=== PATIENT | female | born 2000 | race Hispanic/Latino ===

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

== ENCOUNTER 2023-08-14 06:42 | Inpatient (IN) | payer MEDICAID, OTHER ==
[~2023-08-14] VITALS: Ht 157.5 cm; Wt 68.9 kg
[2023-08-14 07:16] LABS: APPEARANCE,URINE CLOUDY (CLEAR); BILIRUBIN,URINE NEGATIVE (NEGATIVE); COLOR,URINE YELLOW (YELLOW); GLUCOSE, URINE (UA) NEGATIVE (NEGATIVE); KETONES,URINE 10 mg/dL (NEGATIVE); LEUKOCYTE ESTERASE ,URINE NEGATIVE Leu/uL (NEGATIVE); NITRATE,URINE NEGATIVE (NEGATIVE); OCCULT BLOOD,URINE SMALL (NEGATIVE); PROTEIN,URINE 10 mg/dL (NEGATIVE); UROBILINOGEN,URINE 0.2 mg/dL (0.2-1.0)
[2023-08-14 07:26] LABS: ADD UA MICROSCOPIC YES
[2023-08-14 07:29] LABS: BACTERIA,URINE FEW /HPF (None Seen); MUCUS,URINE RARE LPF (None Seen); OTHER CASTS, URINE 1 /LPF (None Seen); SQUAMOUS EPITHELIAL CELL,UR MOD /HPF (0-2)
[2023-08-14 08:09] LABS: BASOPHILS # (AUTO) 0.04 K/uL (0.00-0.20); BASOPHILS % (AUTO) 0.5 % (0.0-5.0); EOSINOPHILS # (AUTO) 0.17 K/uL (0.00-0.70); EOSINOPHILS % (AUTO) 2.1 % (0.0-8.0); HEMATOCRIT 34.7 % (36-48); IMMATURE GRANULOCYTE ABSOLUTE 0.02 K/uL (0-1); LYMPHOCYTES # (AUTO) 1.8 K/uL (1.0-4.8); LYMPHOCYTES % (AUTO) 21.3 % (21.0-51.0); MEAN CORPUSCULAR HEMOGLOBIN 24.8 pg (27.0-33.0); MEAN CORPUSCULAR VOLUME 77.5 fL (80-100); MONOCYTES # (AUTO) 0.7 K/uL (0.1-1.0); MONOCYTES % (AUTO) 8.2 % (3.0-13.0); NEUTROPHILS # (AUTO) 5.6 K/uL (1.8-7.7); NEUTROPHILS % (AUTO) 67.7 % (40.0-77.0); PLATELET COUNT (AUTO) 327 K/uL (130-400); RED BLOOD CELL COUNT(AUTO) 4.48 MIL/uL (4.00-5.50); RED CELL DISTRIBUTION WIDTH 14.7 % (11.0-15.5); WHITE BLOOD COUNT (AUTO) 8.3 K/uL (4.8-10.8)
[2023-08-14] MEDS: HYOSCYAMINE SULFATE 0.125 MG TAB.SUBL SL ONE (08:15)
[2023-08-14] MEDS: ONDANSETRON 4MG INJ IVP ONE (08:15)
[2023-08-14] MEDS: PANTOPRAZOLE 40 MG/VIAL IVP ONE (08:15)
[2023-08-14] MEDS: 0.9%NACL 1000ML 1,000 ML IV ONE (08:15)
[2023-08-14 08:35] LABS: ALBUMIN 3.9 g/dL (3.5-5.0); BILIRUBIN,TOTAL 1.1 mg/dL (0.2-1.0); CREATININE 0.7 mg/dL (0.5-1.0); POTASSIUM 3.6 mmol/L (3.5-5.1); TOTAL PROTEIN, SERUM 8.1 g/dL (6.0-8.3)
[2023-08-14 13:07] LABS: ALBUMIN 3.5 g/dL (3.5-5.0); BILIRUBIN,DIRECT 0.4 mg/dL (0.0-0.3); BILIRUBIN,TOTAL 0.9 mg/dL (0.2-1.0); TOTAL PROTEIN, SERUM 7.3 g/dL (6.0-8.3)
[2023-08-14] MEDS: 0.9%NACL 1000ML 1,000 ML IV SCH (15:30)
[2023-08-14] MEDS ORDERED: ACETAMINOPHEN 500 MG TABLET PO PRN (15:30)
[2023-08-14] MEDS ORDERED: KETOROLAC 15MG/ML VIAL (15MG/ML) IV PRN (15:30)
[2023-08-14 15:36] LABS: AMPHET/METH SCREEN,URINE NEGATIVE (NEGATIVE); BARBITURATE SCREEN, URINE NEGATIVE (NEGATIVE); BENZODIAZEPINES SCREEN,URINE NEGATIVE (NEGATIVE); CANNABINOID SCREEN,URINE NEGATIVE (NEGATIVE); COCAINE SCREEN,URINE NEGATIVE (NEGATIVE); OPIATE SCREEN,URINE NEGATIVE (NEGATIVE); PHENCYCLIDINE SCREEN,URINE NEGATIVE (NEGATIVE)
[2023-08-14 15:39] LABS: INR 0.94 (0.85-1.15); PROTHROMBIN TIME 11.1 SEC (9.6-11.6)
[2023-08-14 15:40] LABS: PARTIAL THROMBOPLASTIN TIME 29.9 SEC (26.3-35.5)
[2023-08-14] MEDS: CEFTRIAXONE 1G VIAL IVPB SCH (15:59)
[2023-08-14] MEDS: METRONIDAZOLE 500MG/100ML BAG 100 ML IVPB SCH (15:59)
[2023-08-14 16:18] LABS: SARS-CoV-2, RNA, NAAT NEGATIVE SARS CoV-2 (NEGATIVE)
[2023-08-14 16:23] LABS: INFLUENZA TYPE A Negative For Type A (NEGATIVE); INFLUENZA TYPE B Negative For Type B (NEGATIVE)
[2023-08-14 17:47] VITALS: BP 109/67; PULSE 62; RESP 17
[2023-08-14 20:00] VITALS: O2SAT 98
[2023-08-14 20:03] VITALS: BP 108/50; PULSE 64; RESP 18
[2023-08-14 23:38] VITALS: BP 111/58; PULSE 6; RESP 18
[2023-08-15 03:48] VITALS: BP 98/45; PULSE 62; RESP 18
[2023-08-15 05:04] LABS: BASOPHILS # (AUTO) 0.05 K/uL (0.00-0.20); BASOPHILS % (AUTO) 0.7 % (0.0-5.0); EOSINOPHILS % (AUTO) 4.2 % (0.0-8.0); HEMATOCRIT 29.3 % (36-48); IMMATURE GRANULOCYTE ABSOLUTE 0.03 K/uL (0-1); LYMPHOCYTES # (AUTO) 2.6 K/uL (1.0-4.8); LYMPHOCYTES % (AUTO) 35.8 % (21.0-51.0); MEAN CORPUSCULAR HEMOGLOBIN 24.9 pg (27.0-33.0); MEAN CORPUSCULAR HGB CONC 31.7 g/dL (32.0-36.0); MEAN CORPUSCULAR VOLUME 78.6 fL (80-100); MONOCYTES # (AUTO) 0.7 K/uL (0.1-1.0); NEUTROPHILS # (AUTO) 3.5 K/uL (1.8-7.7); NEUTROPHILS % (AUTO) 48.9 % (40.0-77.0); PLATELET COUNT (AUTO) 266 K/uL (130-400); RED BLOOD CELL COUNT(AUTO) 3.73 MIL/uL (4.00-5.50); RED CELL DISTRIBUTION WIDTH 14.8 % (11.0-15.5); WHITE BLOOD COUNT (AUTO) 7.2 K/uL (4.8-10.8)
[2023-08-15 05:21] LABS: ALBUMIN 3.1 g/dL (3.5-5.0); BILIRUBIN,TOTAL 0.4 mg/dL (0.2-1.0); CREATININE 0.7 mg/dL (0.5-1.0); MAGNESIUM 1.8 mg/dL (1.80-2.40); TOTAL PROTEIN, SERUM 6.6 g/dL (6.0-8.3)
[2023-08-15 07:47] VITALS: O2SAT 98
[2023-08-15 08:00] VITALS: BP 95/52; PULSE 66; RESP 18
[2023-08-15] MEDS: PANTOPRAZOLE 40 MG/VIAL IVP SCH (09:01)
[2023-08-15] MEDS: ONDANSETRON 4MG INJ IVP PRN (09:36)
[2023-08-15 11:22] VITALS: BP 109/57; PULSE 62; RESP 18
[2023-08-15 16:00] VITALS: BP 100/57; PULSE 66; RESP 17
[2023-08-15 20:00] VITALS: BP 105/71; PULSE 59; RESP 16
[2023-08-16] VITALS (31 sets, daily range): BP systolic 86–119; BP diastolic 48–76; PULSE 62–98; RESP 13–18; O2SAT 99–100
[2023-08-16 03:42] LABS: BASOPHILS # (AUTO) 0.04 K/uL (0.00-0.20); BASOPHILS % (AUTO) 0.5 % (0.0-5.0); EOSINOPHILS # (AUTO) 0.28 K/uL (0.00-0.70); EOSINOPHILS % (AUTO) 3.4 % (0.0-8.0); HEMATOCRIT 29.4 % (36-48); IMMATURE GRANULOCYTE ABSOLUTE 0.02 K/uL (0-1); LYMPHOCYTES # (AUTO) 2.9 K/uL (1.0-4.8); LYMPHOCYTES % (AUTO) 35.3 % (21.0-51.0); MEAN CORPUSCULAR HEMOGLOBIN 25.3 pg (27.0-33.0); MEAN CORPUSCULAR HGB CONC 32.3 g/dL (32.0-36.0); MEAN CORPUSCULAR VOLUME 78.2 fL (80-100); MONOCYTES # (AUTO) 0.8 K/uL (0.1-1.0); MONOCYTES % (AUTO) 9.1 % (3.0-13.0); NEUTROPHILS # (AUTO) 4.2 K/uL (1.8-7.7); NEUTROPHILS % (AUTO) 51.5 % (40.0-77.0); PLATELET COUNT (AUTO) 288 K/uL (130-400); RED BLOOD CELL COUNT(AUTO) 3.76 MIL/uL (4.00-5.50); RED CELL DISTRIBUTION WIDTH 14.9 % (11.0-15.5); WHITE BLOOD COUNT (AUTO) 8.2 K/uL (4.8-10.8)
[2023-08-16 04:16] LABS: ALBUMIN 3.2 g/dL (3.5-5.0); BILIRUBIN,TOTAL 0.4 mg/dL (0.2-1.0); CREATININE 0.7 mg/dL (0.5-1.0); POTASSIUM 3.7 mmol/L (3.5-5.1); TOTAL PROTEIN, SERUM 6.6 g/dL (6.0-8.3)
[2023-08-16] MEDS ORDERED: FENTANYL CITRATE PF 50 MCG/1 ML 2ML VIAL ONE (13:56)
[2023-08-16] MEDS ORDERED: PROPOFOL 10 MG/ML 20ML VIAL IV ONE ×3 (13:56→14:24)
[2023-08-16] MEDS ORDERED: ROCURONIUM BROMIDE 10MG/1ML 5ML VL ONE (13:57)
[2023-08-16] MEDS ORDERED: LIDOCAINE PF 100MG/5ML (2%) SYRINGE 5ML ONE (13:58)
[2023-08-16] MEDS: INDOMETHACIN 100 MG SUPP.RECT RC ONE (14:10)
[2023-08-16] MEDS ORDERED: IOHEXOL-350 50ML VIAL IV ONE (14:59)
[2023-08-17] VITALS (7 sets, daily range): BP systolic 94–117; BP diastolic 54–70; PULSE 56–80; RESP 15–18; O2SAT 96–100
[2023-08-17 05:06] LABS: BASOPHILS # (AUTO) 0.04 K/uL (0.00-0.20); BASOPHILS % (AUTO) 0.4 % (0.0-5.0); EOSINOPHILS # (AUTO) 0.14 K/uL (0.00-0.70); EOSINOPHILS % (AUTO) 1.5 % (0.0-8.0); HEMATOCRIT 32.4 % (36-48); IMMATURE GRANULOCYTE ABSOLUTE 0.04 K/uL (0-1); LYMPHOCYTES # (AUTO) 2.3 K/uL (1.0-4.8); MEAN CORPUSCULAR HEMOGLOBIN 25.2 pg (27.0-33.0); MEAN CORPUSCULAR HGB CONC 31.2 g/dL (32.0-36.0); MEAN CORPUSCULAR VOLUME 80.8 fL (80-100); MONOCYTES % (AUTO) 10.9 % (3.0-13.0); NEUTROPHILS % (AUTO) 62.8 % (40.0-77.0); PLATELET COUNT (AUTO) 279 K/uL (130-400); RED BLOOD CELL COUNT(AUTO) 4.01 MIL/uL (4.00-5.50); RED CELL DISTRIBUTION WIDTH 14.8 % (11.0-15.5); WHITE BLOOD COUNT (AUTO) 9.5 K/uL (4.8-10.8)
[2023-08-17 05:19] LABS: ALBUMIN 3.4 g/dL (3.5-5.0); BILIRUBIN,TOTAL 0.3 mg/dL (0.2-1.0); CREATININE 0.7 mg/dL (0.5-1.0)
[2023-08-18] VITALS (33 sets, daily range): BP systolic 97–121; BP diastolic 52–70; PULSE 59–93; RESP 13–20; O2SAT 100
[2023-08-18 04:04] LABS: BASOPHILS # (AUTO) 0.03 K/uL (0.00-0.20); BASOPHILS % (AUTO) 0.3 % (0.0-5.0); EOSINOPHILS # (AUTO) 0.24 K/uL (0.00-0.70); EOSINOPHILS % (AUTO) 2.8 % (0.0-8.0); HEMATOCRIT 30.8 % (36-48); IMMATURE GRANULOCYTE ABSOLUTE 0.03 K/uL (0-1); LYMPHOCYTES # (AUTO) 2.4 K/uL (1.0-4.8); LYMPHOCYTES % (AUTO) 27.4 % (21.0-51.0); MEAN CORPUSCULAR HEMOGLOBIN 25.3 pg (27.0-33.0); MEAN CORPUSCULAR HGB CONC 31.5 g/dL (32.0-36.0); MEAN CORPUSCULAR VOLUME 80.4 fL (80-100); MONOCYTES # (AUTO) 0.8 K/uL (0.1-1.0); MONOCYTES % (AUTO) 9.1 % (3.0-13.0); NEUTROPHILS # (AUTO) 5.2 K/uL (1.8-7.7); NEUTROPHILS % (AUTO) 60.1 % (40.0-77.0); PLATELET COUNT (AUTO) 291 K/uL (130-400); RED BLOOD CELL COUNT(AUTO) 3.83 MIL/uL (4.00-5.50); RED CELL DISTRIBUTION WIDTH 15.3 % (11.0-15.5); WHITE BLOOD COUNT (AUTO) 8.6 K/uL (4.8-10.8)
[2023-08-18 04:43] LABS: ALBUMIN 3.3 g/dL (3.5-5.0); BILIRUBIN,TOTAL 0.4 mg/dL (0.2-1.0); CREATININE 0.6 mg/dL (0.5-1.0); POTASSIUM 3.7 mmol/L (3.5-5.1); TOTAL PROTEIN, SERUM 6.7 g/dL (6.0-8.3)
[2023-08-18] MEDS ORDERED: MIDAZOLAM HCL 1 MG/ML 2ML VIAL ONE (07:49)
[2023-08-18] MEDS ORDERED: PROPOFOL 10 MG/ML 20ML VIAL IV ONE (07:49)
[2023-08-18] MEDS ORDERED: ROCURONIUM BROMIDE 10MG/1ML 5ML VL ONE (07:49)
[2023-08-18] MEDS ORDERED: SUCCINYLCHOLINE CHLORIDE 20 MG/ML 10 ML VIAL ONE (07:49)
[2023-08-18] MEDS ORDERED: FENTANYL CITRATE PF 50 MCG/1 ML 2ML VIAL ONE (07:50)
[2023-08-18] MEDS: BUPIVACAINE/PF 0.5% 30ML VIAL ONE (08:07)
[2023-08-18] MEDS ORDERED: GLYCOPYRROLATE 0.2 MG/ML 5 ML VIAL ONE (08:43)
[2023-08-18] MEDS ORDERED: ACET-2079 PO (08:54)
[2023-08-18] MEDS: KETOROLAC 30MG VIAL (30MG/ML) ONE (09:10)
[2023-08-18] MEDS: MEPERIDINE-PF 25 MG/ML SYG ONE ×2 (09:10→09:32)
[2023-08-18] MEDS: ONDANSETRON 4MG INJ ONE (09:56)
[2023-08-18] MEDS ORDERED: KETOROLAC 30MG VIAL (30MG/ML) IVP PRN (10:30)
[2023-08-18] MEDS ORDERED: MORPHINE 2 MG SYG IVP PRN (10:30)
[2023-08-18] MEDS: HYDROCODONE/ACETAMINOPHEN 7.5/325 MG TAB PO PRN (12:24)
[2023-08-18] MEDS ORDERED: AMOX1TAB16 PO (12:39)
[2023-08-19] VITALS: BP 92/60; PULSE 65; RESP 17
[2023-08-19 04:00] VITALS: BP 97/61; PULSE 63; RESP 16
[2023-08-19 04:56] LABS: MEAN CORPUSCULAR HEMOGLOBIN 25.1 pg (27.0-33.0); MEAN CORPUSCULAR HGB CONC 31.4 g/dL (32.0-36.0); MEAN CORPUSCULAR VOLUME 79.9 fL (80-100); RED BLOOD CELL COUNT(AUTO) 3.63 MIL/uL (4.00-5.50); RED CELL DISTRIBUTION WIDTH 15.9 % (11.0-15.5)
[2023-08-19 05:29] LABS: ALBUMIN 2.9 g/dL (3.5-5.0); BILIRUBIN,TOTAL 0.3 mg/dL (0.2-1.0); CREATININE 0.7 mg/dL (0.5-1.0); MAGNESIUM 1.7 mg/dL (1.80-2.40); POTASSIUM 3.5 mmol/L (3.5-5.1); TOTAL PROTEIN, SERUM 6.3 g/dL (6.0-8.3)
[2023-08-19 07:15] VITALS: BP 98/57; PULSE 70; RESP 18
[2023-08-19 08:20] VITALS: O2SAT 100
[2023-08-19] MEDS ORDERED: MAGNESIUM 2GM PREMIX 50ML 50 ML IV SCH (11:30)
[2023-08-19] MEDS: KCL 20 MEQ ERTAB PO ONE (11:31)
== END 2023-08-19 12:15 | disposition home or self-care (01) | DRG 418 ==
LOC: EDH 06:42 → EDHIP 06:43 → UNDOADMIN 15:09 → EDHIP 15:09 → 4AH 17:18
PROVIDERS: ADMIT Internal Medicine; ATTEND Internal Medicine
PROC: 0FT44ZZ Resection of Gallbladder, Percutaneous Endoscopic Approach (ICD-10-PCS; principal; 2023-08-18 07:45)
DX: K80.63 Calculus of gallbladder and bile duct with acute cholecystitis with obstruction (principal); B17.9 Acute viral hepatitis, unspecified
CPT/HCPCS: 36415; 43264; 43274; 74181; 74330; 76705; 80053; 80076; 80305; 81001; 81025; 83690; 83735; 84145; 85025; 85027; 85610; 85730; 86140; 87635; 87804; C1769; C1773; C2617; C9113; G0378; J0330; J0696; J1885; J2001; J2175; J2250; J2405; J2704; J3010; J3490; J7030; Q9967; A4215; A4657; C2625; J0665; S8037

== ENCOUNTER 2023-12-27 08:38 | Day surgery (SDC) | payer BC, SELFPAY ==
[~2023-12-27] VITALS: Ht 157.5 cm; Wt 74.4 kg
[2023-12-27] VITALS (19 sets, daily range): BP systolic 87–117; BP diastolic 49–67; PULSE 71–94; RESP 14–17; TEMP 97.1–97.7
[~2023-12-27 08:38] MED LIST: 0.9%NACL 1000ML 1,000 ML IV ONE; ACET-2079 PO; AMOX1TAB16 PO
[2023-12-27] MEDS ORDERED: CHOL378P14 PO (10:19)
[2023-12-27] MEDS: 0.9%NACL 1000ML 1,000 ML IV ONE (10:28)
[2023-12-27] MEDS ORDERED: IOHEXOL-350 50ML VIAL IV ONE (11:24)
[2023-12-27] MEDS ORDERED: FENTanyl CITRate PF 50 MCG/1 ML 2ML VIAL ONE (11:28)
[2023-12-27] MEDS ORDERED: ONDANSETRON 4MG INJ ONE (11:29)
[2023-12-27] MEDS ORDERED: proPOFol 10 MG/ML 20ML VIAL IV ONE (11:29)
[2023-12-27] MEDS ORDERED: SUCCINYLCHOLINE CHLORIDE 20 MG/ML 10 ML VIAL ONE (11:29)
[2023-12-27] MEDS ORDERED: MIDAZOLAM HCL 1 MG/ML 2ML VIAL ONE (11:29)
[2023-12-27] MEDS ORDERED: LIDOCAINE PF 100MG/5ML (2%) SYRINGE 5ML ONE (11:30)
== END 2023-12-27 13:41 | disposition home or self-care (01) ==
LOC: ENDO 08:38 → DAH 08:38 → ENDO 13:41
PROVIDERS: ATTEND Internal Medicine Gastroenterology
DX: K80.51 Calculus of bile duct without cholangitis or cholecystitis with obstruction (principal); K29.60 Other gastritis without bleeding; K21.9 Gastro-esophageal reflux disease without esophagitis; B96.81 Helicobacter pylori [H. pylori] as the cause of diseases classified elsewhere; R10.13 Epigastric pain; K59.00 Constipation, unspecified; Z90.49 Acquired absence of other specified parts of digestive tract; Z83.79 Family history of other diseases of the digestive system; Z96.89 Presence of other specified functional implants; Z79.899 Other long term (current) drug therapy
CPT/HCPCS: 43264; 81025; 43275; 74328; J3010; J0330; J7030; J2001; J2250; J2704; J2405; Q9967; A4620; A4215 ×2; A4223; A7002; A4222; A4221; A4663; A4606; C1769; C1773; 74330; J3490